=== PATIENT | male | born 1960 | race Caucasian/White ===

== ENCOUNTER 2021-05-25 03:12 | Inpatient (IN) | payer OTHER ==
[2021-05-25] MEDS ORDERED: Boostrix 0.5 ML (Tdap) VIAL ONE (03:17)
[2021-05-25] MEDS ORDERED: CEFAZOLIN 1 GM VIAL ONE (03:19)
[2021-05-25 03:48] LABS: #Basophils 0.1 thou/uL (0.0-0.2); #Eosinphils 0.3 thou/uL (0.0-0.7); #Lymphocytes 2.3 thou/uL (1.20-3.40); #Monocytes 0.7 thou/uL (0.11-0.59); #Neutrophils 6.9 thou/uL (1.40-6.50); %Basophils 0.6 % (0.0-1.0); %Eosinophils 2.9 % (0.0-10.0); %Lymphocytes 22.7 % (21.0-51.0); %Monocytes 6.9 % (0.0-10.0); %Neutrophils 66.9 % (42.0-75.0); Hemoglobin 15.8 g/dL (14.0-18.0); Mean Corpuscular HGB CONC 33.3 g/dL (32.0-36.0); Mean Corpuscular Volume 95.9 fL (78.0-98.0); Mean Platelet Volume 7.8 fL (7.4-10.4); Platelet Count 240 thou/uL (130-400); Red Blood Cell (RBC) Count 4.96 mill/uL (4.70-6.10); White Blood Cell (WBC) Count 10.3 thou/uL (4.8-10.8)
[2021-05-25] MEDS ORDERED: Bacitracin Zinc Ointment 30 gm TUBE ONE (03:49)
[2021-05-25] MEDS ORDERED: Bupivacaine PF 0.5% 30 ML VIAL ONE (03:49)
[2021-05-25] MEDS ORDERED: Neomycin-Polymyxin 1 ML AMP ONE ×3 (03:49→06:51)
[2021-05-25] MEDS ORDERED: Ondansetron PF 4 MG/2 ML Vial ONE (04:16)
[2021-05-25] MEDS ORDERED: Fentanyl 100 MCG/2 ML VIAL ONE ×3 (04:16→05:05)
[2021-05-25 04:22] LABS: ALT (SGPT) 26 U/L (8-55); AST (SGOT) 32 U/L (5-34); Albumin 4.1 g/dL (3.4-4.8); Alkaline Phosphatase 91 U/L (40-110); Anion Gap 14 mmol/L (10-20); BUN (Urea Nitrogen) 16 mg/dL (8.4-25.7); Bilirubin, Total 0.4 mg/dL (0.2-1.2); Calc. Creatinine Clearance 0 mL/min (70-130); Calcium 9.3 mg/dL (7.8-10.44); Carbon Dioxide 24 mmol/L (23-31); Chloride 101 mmol/L (98-107); Globulin 3.2 g/dL (2.4-3.5); Glucose 104 mg/dL (80-115); Potassium 3.1 mmol/L (3.5-5.1); Protein, Total 7.3 g/dL (5.8-8.1); Sodium 136 mmol/L (136-145)
[2021-05-25] MEDS ORDERED: Atropine Sulfate 1 mg/10 ml Syringe ONE (04:22)
[2021-05-25 04:53] LABS: SARS-CoV-2 NAA Rapid Test Not Detected (NotDetected)
[2021-05-25] MEDS ORDERED: HYDROcodone/Acetaminophen 5/325 mg Tablet PO PRN (04:59)
[2021-05-25] MEDS ORDERED: traMADol HCl 50 MG TAB PO PRN (04:59)
[2021-05-25] MEDS ORDERED: Morphine 4 MG/ML VIAL SLOW IVP PRN (04:59)
[2021-05-25] MEDS ORDERED: Fentanyl 100 MCG/2 ML VIAL SLOW IVP PRN (04:59)
[2021-05-25] MEDS ORDERED: Ondansetron PF 4 MG/2 ML Vial SLOW IVP PRN (04:59)
[2021-05-25] MEDS ORDERED: Promethazine HCl 25 MG/ML VIAL IM PRN ×2 (04:59→11:44)
[2021-05-25] MEDS ORDERED: Milk Of Magnesia 30 ML UDCUP PO PRN (04:59)
[2021-05-25] MEDS ORDERED: Communication Order-Pharmacy FS PRN (05:00)
[2021-05-25] MEDS ORDERED: TETANUS AND DIPHTHERIA TOX/PF 0.5 ML DISP.SYRIN IM SCH (05:00)
[2021-05-25] MEDS ORDERED: Midazolam HCl 2 mg/2 ml Vial ONE (05:05)
[2021-05-25] MEDS ORDERED: Ketorolac Tromethamine 30 MG/ML VIAL IVP PRN (05:06)
[2021-05-25] MEDS ORDERED: Meperidine HCl/PF 25 MG/ML VIAL IM PRN (05:06)
[2021-05-25] MEDS ORDERED: HYDROmorphone 0.5 MG/0.5 ML SYRINGE ONE (05:09)
[2021-05-25] MEDS ORDERED: Vancomycin 1 GM in Premix Bag 1 BAG IVPB SCH ×2 (06:00→09:00)
[2021-05-25] MEDS ORDERED: Hetastarch 6% 500 ML 500 ML ONE ×2 (07:38→12:00)
[2021-05-25] MEDS ORDERED: Heparin 5,000 UNITS/ML VIAL ONE ×2 (07:38→08:16)
[2021-05-25] MEDS ORDERED: Lidocaine 2% PF 5 ML VIAL ONE (07:38)
[2021-05-25] MEDS ORDERED: Fentanyl 250 MCG/5 ML VIAL ONE (07:47)
[2021-05-25] MEDS ORDERED: PHENYLEPHRINE-NS 100 MCG/ML 10 ML SYRINGE ONE (08:15)
[2021-05-25] MEDS ORDERED: Lidocaine 1% PF 5 ML VIAL ONE (08:15)
[2021-05-25] MEDS ORDERED: PROPOFOL 200 MG/20 ML VIAL ONE (08:15)
[2021-05-25] MEDS ORDERED: ePHEDrine 50 MG/ML VIAL ONE (08:15)
[2021-05-25] MEDS ORDERED: Glycopyrrolate 0.2 MG/ML 5 ML SYRINGE ONE (08:15)
[2021-05-25] MEDS ORDERED: Succinylcholine 200 MG/10 ml SYRINGE FS ONE (08:15)
[2021-05-25] MEDS ORDERED: Rocuronium Bromide 10 MG/ML (10ML VIAL) ONE (08:15)
[2021-05-25] MEDS ORDERED: Dexamethasone 20 MG/5 ML VIAL ONE (08:15)
[2021-05-25] MEDS ORDERED: Vecuronium 10 MG VIAL ONE (08:15)
[2021-05-25] MEDS ORDERED: Heparin 10,000 UNITS/ 10 ML VIAL ONE (08:16)
[2021-05-25] MEDS ORDERED: Heparin 25,000 units/D5W 500 ML ONE (08:45)
[2021-05-25] MEDS ORDERED: Phenylephrine 10 MG/ML VIAL ONE (08:58)
[2021-05-25] MEDS: Pen G 2.5 MILL.UNITS/50 ML BAG IVPB SCH ×3 (10:00→20:30)
[2021-05-25] MEDS ORDERED: Ondansetron HCl/PF 4 MG/2 ML Vial IVP PRN (11:44)
[2021-05-25] MEDS ORDERED: Promethazine HCl 25 MG/ML VIAL IVPB PRN (11:44)
[2021-05-25] MEDS ORDERED: HYDROmorphone 2 MG/ML VIAL SLOW IVP PRN (11:44)
[2021-05-25] MEDS: Aspirin 81 mg Enteric Coated Tablet PO SCH ×2 (13:16→20:08)
[2021-05-25] MEDS: Sodium Chloride 0.9% 1,000 ML IV SCH ×3 (13:16→20:08)
[2021-05-25 13:36] VITALS: BMI 28.7
[2021-05-25] MEDS ORDERED: VANCOMYCIN 1.75 GM/350 ML BAG 1.75 GM in Premix Bag 1 BAG IVPB SCH (16:00)
[2021-05-25] MEDS ORDERED: SODIUM CHLORIDE 0.9% IVPB SCH (16:30)
[2021-05-25] MEDS ORDERED: GENTAMICIN IVPB SCH (16:30)
[2021-05-25] MEDS: Acetaminophen 325 MG TAB PO PRN (22:02)
[2021-05-25] MEDS: Penicillin G Potassium 2.5 MILL.UNITS in Sodium Chloride 0.9% 50 ML IVPB SCH (22:28)
[2021-05-25] MEDS ORDERED: Heparin 25,000 units/D5W 25,000 UNIT in Premix Bag 1 BAG IV SCH (22:45)
[2021-05-25] MEDS ORDERED: HETASTARCH 6% IVPB SCH (23:00)
[2021-05-25] MEDS ORDERED: diphenhydrAMINE 50 MG/ML VIAL IVP SCH (23:15)
[2021-05-26] MEDS: Penicillin G Potassium 2.5 MILL.UNITS in Sodium Chloride 0.9% 50 ML IVPB SCH ×3 (02:07→08:28)
[2021-05-26] MEDS: Gentamicin 80 MG/2 ML VIAL IM SCH (03:20)
[2021-05-26] MEDS: Hetastarch 6% 500 ML 500 ML IVPB SCH (04:58)
[2021-05-26 06:28] LABS: #Lymphocytes 1.6 thou/uL (1.20-3.40); #Monocytes 0.7 thou/uL (0.11-0.59); #Neutrophils 9.2 thou/uL (1.40-6.50); %Basophils 0.3 % (0.0-1.0); %Eosinophils 0.1 % (0.0-10.0); %Lymphocytes 13.8 % (21.0-51.0); %Monocytes 6.4 % (0.0-10.0); %Neutrophils 79.4 % (42.0-75.0); Hemoglobin 13.2 g/dL (14.0-18.0); Mean Corpuscular Hemoglobin 32.4 pg (27.0-31.0); Mean Corpuscular Volume 98.3 fL (78.0-98.0); Platelet Count 216 thou/uL (130-400); RBC Distribution Width 12.3 % (11.5-14.5); Red Blood Cell (RBC) Count 4.08 mill/uL (4.70-6.10); White Blood Cell (WBC) Count 11.5 thou/uL (4.8-10.8)
[2021-05-26] MEDS: Aspirin 81 mg Enteric Coated Tablet PO SCH ×2 (07:47→20:15)
[2021-05-26] MEDS: Vancomycin 1 GM in Premix Bag 1 BAG IVPB SCH ×2 (07:48→20:16)
[2021-05-26] MEDS: Acetaminophen 325 MG TAB PO PRN ×2 (09:55→20:14)
[2021-05-26] MEDS: Sodium Chloride 0.9% 1,000 ML IV SCH ×2 (11:46→22:58)
[2021-05-26] MEDS: GENTAMICIN IVPB SCH (17:41)
[2021-05-26] MEDS: SODIUM CHLORIDE 0.9% IVPB SCH (17:41)
[2021-05-26] MEDS ORDERED: Heparin 25,000 units/D5W 25,000 UNIT in Premix Bag 1 BAG IV SCH (19:15)
[2021-05-27] MEDS: Hetastarch 6% 500 ML 500 ML IVPB SCH (01:44)
[2021-05-27] MEDS ORDERED: Lidocaine 1% MPF 2 ML VIAL ONE (08:30)
[2021-05-27] MEDS: Vancomycin 1 GM in Premix Bag 1 BAG IVPB SCH ×2 (09:30→20:50)
[2021-05-27] MEDS ORDERED: Bupivacaine PF 0.5% 30 ML VIAL ONE (09:54)
[2021-05-27] MEDS ORDERED: Bacitracin Zinc Ointment 30 gm TUBE ONE (09:54)
[2021-05-27] MEDS ORDERED: Fentanyl 100 MCG/2 ML VIAL ONE ×3 (10:18→13:10)
[2021-05-27] MEDS ORDERED: Ondansetron HCl/PF 4 MG/2 ML Vial IVP PRN (12:41)
[2021-05-27] MEDS ORDERED: HYDROmorphone 2 MG/ML VIAL SLOW IVP PRN (12:41)
[2021-05-27] MEDS ORDERED: Promethazine HCl 25 MG/ML VIAL IM PRN (12:41)
[2021-05-27] MEDS ORDERED: Promethazine HCl 25 MG/ML VIAL IVPB PRN (12:41)
[2021-05-27] MEDS ORDERED: Clindamycin/D5W 900 mg/50 ml Premix Bag ONE (13:05)
[2021-05-27] MEDS ORDERED: Aspirin 325 MG TAB ONE (13:06)
[2021-05-27] MEDS ORDERED: Clindamycin/D5W 900 MG in Premix Bag 1 BAG IVPB SCH (13:15)
[2021-05-27] MEDS ORDERED: Aspirin 325 mg Enteric Coated Tablet PO SCH (13:15)
[2021-05-27] MEDS: Sodium Chloride 0.9% 1,000 ML IV SCH ×2 (14:26→17:59)
[2021-05-27] MEDS: Aspirin 81 mg Enteric Coated Tablet PO SCH ×2 (14:26→20:40)
[2021-05-27] MEDS ORDERED: HYDROcodone/Acetaminophen 5/325 mg Tablet PO PRN (16:41)
[2021-05-27] MEDS ORDERED: Meperidine HCl/PF 25 MG/ML VIAL IM PRN (16:44)
[2021-05-27] MEDS ORDERED: Ketorolac Tromethamine 30 MG/ML VIAL IVP PRN ×2 (16:44→16:58)
[2021-05-27] MEDS ORDERED: Communication Order-Pharmacy FS SCH (16:45)
[2021-05-27] MEDS ORDERED: TETANUS AND DIPHTHERIA TOX/PF 0.5 ML DISP.SYRIN IM SCH (16:45)
[2021-05-27] MEDS: SODIUM CHLORIDE 0.9% IVPB SCH (17:59)
[2021-05-27] MEDS: GENTAMICIN IVPB SCH (17:59)
[2021-05-27] MEDS: Pregabalin 75 MG CAP PO SCH (20:40)
[2021-05-27] MEDS ORDERED: Aspirin 81 mg Enteric Coated Tablet PO SCH (21:00)
[2021-05-28 03:59] VITALS: BP 117/77; TEMP 97.8
[2021-05-28] MEDS: Sodium Chloride 0.9% 1,000 ML IV SCH (04:43)
[2021-05-28] MEDS ORDERED: FLU VACC QS2021-22(6MOS UP)/PF 60 MCG/0.5 ML SYRINGE IM ONE (09:00)
[2021-05-28] MEDS ORDERED: Chlorthalidone 25 MG TAB PO SCH (09:00)
[2021-05-28] MEDS: Aspirin 81 mg Enteric Coated Tablet PO SCH (09:21)
[2021-05-28] MEDS: Pregabalin 75 MG CAP PO SCH (09:22)
[2021-05-28] MEDS: Vancomycin 1 GM in Premix Bag 1 BAG IVPB SCH (09:23)
== END 2021-05-28 12:26 | disposition home or self-care (01) | DRG 906 ==
LOC: ERS 03:12 → SDC 06:30 → SURG A 06:31
PROVIDERS: ADMIT Orthopaedic Surgery Hand Surgery; ATTEND Orthopaedic Surgery Hand Surgery
PROC: 0PSV04Z Reposition Left Finger Phalanx with Internal Fixation Device, Open Approach (ICD-10-PCS; principal; 2021-05-25)
PROC: 01Q60ZZ Repair Radial Nerve, Open Approach (ICD-10-PCS; 2021-05-25)
PROC: 01Q40ZZ Repair Ulnar Nerve, Open Approach (ICD-10-PCS; 2021-05-25)
PROC: 0HRGX73 Replacement of Left Hand Skin with Autologous Tissue Substitute, Full Thickness, External Approach (ICD-10-PCS; 2021-05-27)
PROC: 0HQQXZZ Repair Finger Nail, External Approach (ICD-10-PCS; 2021-05-27)
PROC: 0JBK0ZZ Excision of Left Hand Subcutaneous Tissue and Fascia, Open Approach (ICD-10-PCS; 2021-05-27)
PROC: 0HBEXZZ Excision of Left Lower Arm Skin, External Approach (ICD-10-PCS; 2021-05-27)
PROC: 0HDQXZZ Extraction of Finger Nail, External Approach (ICD-10-PCS; 2021-05-27)
DX: S67.193A Crushing injury of left middle finger, initial encounter (principal); Z23 Encounter for immunization; Z20.822 Contact with and (suspected) exposure to COVID-19; S62.633B Displaced fracture of distal phalanx of left middle finger, initial encounter for open fracture; S55.012A Laceration of ulnar artery at forearm level, left arm, initial encounter; S55.112A Laceration of radial artery at forearm level, left arm, initial encounter; S62.613B Displaced fracture of proximal phalanx of left middle finger, initial encounter for open fracture; F41.9 Anxiety disorder, unspecified; S54.22XA Injury of radial nerve at forearm level, left arm, initial encounter; Z79.899 Other long term (current) drug therapy; Z87.442 Personal history of urinary calculi; W31.1XXA Contact with metalworking machines, initial encounter; Y92.69 Other specified industrial and construction area as the place of occurrence of the external cause; Y99.0 Civilian activity done for income or pay
CPT/HCPCS: 36415; 71045; 76000; 80053; 80170; 85025; 90715; 93005; C1713; G0390; J0461; J0690; J1100; J1170; J1200; J1580; J1644; J2001; J2250; J2270; J2370; J2405; J2540; J2704; J3010; J3370; J3490; J7050; S0020; U0002

== ENCOUNTER 2021-08-01 14:50 | Outpatient (CLI) | payer OTHER ==
[2021-08-01 16:02] LABS: #Eosinphils 0.1 10x3/uL (0.0-0.5); #Monocytes 0.6 10x3/uL (0.0-1.1); %Basophils 0.7 % (0.0-2.0); %Eosinophils 1.6 % (0.0-6.0); %Lymphocytes 31.3 % (18.0-47.0); %Monocytes 10.4 % (0.0-10.0); %Neutrophils 55.5 % (40.0-75.0); Hemoglobin 14.5 g/dL (13.5-17.5); Mean Corpuscular HGB CONC 34.6 g/dL (32.0-36.0); Mean Corpuscular Hemoglobin 31.7 pg (27.0-33.0); Mean Corpuscular Volume 91.7 fl (81.2-95.1); Mean Platelet Volume 10.2 fl (7.4-10.4); Platelet Count 266 10x3/uL (150-450); RBC Distribution Width 13.1 % (11.5-14.5); Red Blood Cell (RBC) Count 4.57 10x6/uL (4.32-5.72); White Blood Cell (WBC) Count 5.5 10x3/uL (3.5-10.5)
[2021-08-02 00:03] LABS: SARS-CoV-2 PCR by NAA Not Detected (NotDetected)
== END 2021-08-01 14:51 | disposition home or self-care (01) ==
LOC: LABBT 14:50
PROVIDERS: ATTEND Orthopaedic Surgery Hand Surgery
DX: Z01.812 Encounter for preprocedural laboratory examination (principal); S62.633B Displaced fracture of distal phalanx of left middle finger, initial encounter for open fracture; S62.623B Displaced fracture of middle phalanx of left middle finger, initial encounter for open fracture; S62.613B Displaced fracture of proximal phalanx of left middle finger, initial encounter for open fracture; T84.84XA Pain due to internal orthopedic prosthetic devices, implants and grafts, initial encounter; Z20.822 Contact with and (suspected) exposure to COVID-19
CPT/HCPCS: 85025; U0003; U0005

== ENCOUNTER 2021-08-02 12:05 | Day surgery (SDC) | payer OTHER ==
[2021-08-01 11:04] VITALS: BMI 28.7
[2021-08-02] MEDS ORDERED: Sodium Chloride 0.9% 0 ML ONE (12:54)
[2021-08-02] MEDS ORDERED: CEFAZOLIN 2 GM VIAL ONE (12:54)
[2021-08-02] MEDS ORDERED: fentaNYL Citrate/PF 100 MCG/2 ML SYRINGE ONE (12:59)
[2021-08-02] MEDS ORDERED: Midazolam HCl 2 mg/2 ml Vial ONE (12:59)
[2021-08-02] MEDS ORDERED: HYDROmorphone 2 MG/ML VIAL ONE (13:00)
[2021-08-02] MEDS ORDERED: Clindamycin/D5W 600 mg/50 ml Premix Bag ONE (13:00)
[2021-08-02] MEDS ORDERED: Ondansetron PF 4 MG/2 ML Vial ONE (13:22)
[2021-08-02] MEDS ORDERED: Lidocaine 1% PF 5 ML VIAL ONE (13:22)
[2021-08-02] MEDS ORDERED: Dexamethasone 20 MG/5 ML VIAL ONE (13:22)
[2021-08-02] MEDS ORDERED: PROPOFOL 200 MG/20 ML VIAL ONE (13:22)
[2021-08-02] MEDS ORDERED: Glycopyrrolate 0.2 MG/ML 5 ML SYRINGE ONE (13:22)
[2021-08-02] MEDS ORDERED: ePHEDrine 50 MG/ML VIAL ONE (13:22)
[2021-08-02 13:29] LABS: Anion Gap 12 mmol/L (10-20); BUN (Urea Nitrogen) 18 mg/dL (8.4-25.7); Calc. Creatinine Clearance 87 mL/min (70-130); Carbon Dioxide 26 mmol/L (23-31); Chloride 104 mmol/L (98-107); Glucose 89 mg/dL (80-115); Potassium 3.7 mmol/L (3.5-5.1); Sodium 138 mmol/L (136-145)
[2021-08-02] MEDS ORDERED: Neomycin-Polymyxin 1 ML AMP ONE (13:43)
[2021-08-02] MEDS ORDERED: Bupivacaine PF 0.5% 30 ML VIAL ONE (13:43)
[2021-08-02] MEDS ORDERED: Bacitracin Zinc Ointment 30 gm TUBE ONE (13:43)
== END 2021-08-02 16:04 | disposition home or self-care (01) ==
LOC: SDC 12:05
PROVIDERS: ATTEND Orthopaedic Surgery Hand Surgery
PROC: 0RPX0JZ Removal of Synthetic Substitute from Left Finger Phalangeal Joint, Open Approach (ICD-10-PCS; principal; 2021-08-02)
DX: T84.84XA Pain due to internal orthopedic prosthetic devices, implants and grafts, initial encounter (principal); Z79.899 Other long term (current) drug therapy; Z88.0 Allergy status to penicillin
CPT/HCPCS: 76000; 80048; J1100; J1170; J2250; J2405; J2704; J3490; S0020

== ENCOUNTER 2021-08-11 03:30 | Inpatient (IN) | payer OTHER ==
[2021-08-11] MEDS ORDERED: Heparin 1,000 UNITS/ML VIAL ONE (13:13)
[2021-08-11 16:35] LABS: SARS-CoV-2 NAA Rapid Test Not Detected (NotDetected)
[2021-08-11] MEDS ORDERED: PROPOFOL 200 MG/20 ML VIAL ONE (16:42)
[2021-08-11] MEDS ORDERED: Lidocaine 1% PF 5 ML VIAL ONE (16:42)
[2021-08-11] MEDS ORDERED: Glycopyrrolate 0.2 MG/ML 5 ML SYRINGE ONE (16:42)
[2021-08-11] MEDS ORDERED: Ondansetron PF 4 MG/2 ML Vial ONE ×2 (16:42→20:43)
[2021-08-11 17:45] LABS: #Basophils 0.1 thou/uL (0.0-0.2); #Lymphocytes 1.5 thou/uL (1.20-3.40); #Monocytes 0.6 thou/uL (0.11-0.59); #Neutrophils 4.8 thou/uL (1.40-6.50); %Basophils 0.8 % (0.0-1.0); %Eosinophils 0.4 % (0.0-10.0); %Lymphocytes 22.1 % (21.0-51.0); %Neutrophils 68.7 % (42.0-75.0); Hemoglobin 14.3 g/dL (14.0-18.0); Mean Corpuscular HGB CONC 33.1 g/dL (32.0-36.0); Mean Corpuscular Hemoglobin 32.5 pg (27.0-31.0); Mean Corpuscular Volume 98.2 fL (78.0-98.0); Mean Platelet Volume 7.4 fL (7.4-10.4); Platelet Count 253 thou/uL (130-400); RBC Distribution Width 11.8 % (11.5-14.5); Red Blood Cell (RBC) Count 4.41 mill/uL (4.70-6.10); White Blood Cell (WBC) Count 6.9 thou/uL (4.8-10.8)
[2021-08-11] MEDS ORDERED: Midazolam HCl 2 mg/2 ml Vial ONE (18:02)
[2021-08-11] MEDS ORDERED: fentaNYL Citrate/PF 100 MCG/2 ML SYRINGE ONE (18:03)
[2021-08-11] MEDS ORDERED: Promethazine HCl 25 MG/ML VIAL IM PRN ×2 (18:17→20:02)
[2021-08-11] MEDS ORDERED: Neomycin-Polymyxin 1 ML AMP ONE (18:17)
[2021-08-11] MEDS ORDERED: Fentanyl 100 MCG/2 ML VIAL SLOW IVP PRN (18:17)
[2021-08-11] MEDS ORDERED: Milk Of Magnesia 30 ML UDCUP PO PRN (18:17)
[2021-08-11] MEDS ORDERED: Ondansetron PF 4 MG/2 ML Vial IVP PRN (18:17)
[2021-08-11] MEDS ORDERED: Bacitracin Zinc Ointment 30 gm TUBE ONE (18:17)
[2021-08-11] MEDS ORDERED: Bupivacaine PF 0.5% 30 ML VIAL ONE (18:17)
[2021-08-11] MEDS ORDERED: Meperidine HCl/PF 25 MG/ML VIAL IM PRN (18:22)
[2021-08-11] MEDS ORDERED: Vancomycin 1 GM/200 ML BAG ONE (18:29)
[2021-08-11] MEDS ORDERED: Communication Order-Pharmacy FS SCH (18:30)
[2021-08-11] MEDS ORDERED: Tobramycin Sulfate 1.2 GM VIAL ONE (18:51)
[2021-08-11] MEDS ORDERED: TETANUS AND DIPHTHERIA TOX/PF 0.5 ML DISP.SYRIN IM SCH (19:00)
[2021-08-11] MEDS ORDERED: Meperidine HCl/PF 25 MG/ML VIAL SLOW IVP PRN ×2 (20:02)
[2021-08-11] MEDS ORDERED: Ondansetron HCl/PF 4 MG/2 ML Vial IVP PRN (20:02)
[2021-08-11] MEDS ORDERED: Promethazine HCl 25 MG/ML VIAL IVPB PRN (20:02)
[2021-08-11] MEDS ORDERED: Fentanyl 100 MCG/2 ML VIAL ONE ×2 (20:18→21:04)
[2021-08-11] MEDS ORDERED: Meperidine HCl/PF 25 MG/ML VIAL ONE (20:21)
[2021-08-11 21:57] VITALS: BMI 28.4
[2021-08-11] MEDS: Sodium Chloride 0.9% 1,000 ML IV SCH (22:11)
[2021-08-11] MEDS: Aspirin 81 mg Enteric Coated Tablet PO SCH (22:28)
[2021-08-11] MEDS: Morphine 4 MG/ML VIAL SLOW IVP PRN (22:31)
[2021-08-11] MEDS: Clindamycin/D5W 900 MG in Premix Bag 1 BAG IVPB SCH (23:55)
[2021-08-12] MEDS: Ketorolac Tromethamine 30 MG/ML VIAL IVP SCH ×5 (00:02→17:32)
[2021-08-12] MEDS: Gentamicin Sulfate 80 MG in Premix Bag 1 BAG IVPB SCH ×3 (00:42→17:33)
[2021-08-12] MEDS: Sodium Chloride 0.9% 1,000 ML IV SCH ×2 (03:25→13:13)
[2021-08-12] MEDS ORDERED: Vancomycin 1.5 GRAM/300 ML BAG 1.5 GM in Premix Bag 1 BAG IVPB SCH (06:00)
[2021-08-12] MEDS: Aspirin 81 mg Enteric Coated Tablet PO SCH ×2 (08:09→21:27)
[2021-08-12] MEDS: Clindamycin/D5W 900 MG in Premix Bag 1 BAG IVPB SCH ×2 (09:00→15:58)
[2021-08-12] MEDS: HYDROcodone/Acetaminophen 5/325 mg Tablet PO PRN (21:27)
[2021-08-13] MEDS: Ketorolac Tromethamine 30 MG/ML VIAL IVP SCH (00:07)
[2021-08-13] MEDS: Sodium Chloride 0.9% 1,000 ML IV SCH ×3 (01:25→18:59)
[2021-08-13] MEDS: Morphine 4 MG/ML VIAL SLOW IVP PRN (08:52)
[2021-08-13] MEDS: Aspirin 81 mg Enteric Coated Tablet PO SCH ×2 (08:52→21:00)
[2021-08-13] MEDS ORDERED: ceFAZolin 2 GM/Dextrose 50 ML 2 GM in Premix Bag 1 BAG IVPB SCH (20:00)
[2021-08-13] MEDS: HYDROcodone/Acetaminophen 5/325 mg Tablet PO PRN (21:00)
[2021-08-13] MEDS: CEFAZOLIN 2 GM in Sodium Chloride 0.9% 100 ML IVPB SCH (21:17)
[2021-08-13] MEDS: Vancomycin HCl 1.25 GM in Sodium Chloride 0.9% 250 ML 250 ML IVPB SCH (22:11)
[2021-08-14] MEDS: Sodium Chloride 0.9% 1,000 ML IV SCH ×3 (04:51→23:04)
[2021-08-14] MEDS: CEFAZOLIN 2 GM in Sodium Chloride 0.9% 100 ML IVPB SCH (05:25)
[2021-08-14] MEDS: Vancomycin HCl 1.25 GM in Sodium Chloride 0.9% 250 ML 250 ML IVPB SCH ×2 (10:14→21:18)
[2021-08-14] MEDS: Aspirin 81 mg Enteric Coated Tablet PO SCH ×2 (10:15→21:18)
[2021-08-14] MEDS: Morphine 4 MG/ML VIAL SLOW IVP PRN ×2 (11:52→13:53)
[2021-08-15 07:56] LABS: #Basophils 0.1 thou/uL (0.0-0.2); #Eosinphils 0.2 thou/uL (0.0-0.7); #Lymphocytes 1.7 thou/uL (1.20-3.40); #Monocytes 0.4 thou/uL (0.11-0.59); #Neutrophils 4.4 thou/uL (1.40-6.50); %Basophils 0.8 % (0.0-1.0); %Eosinophils 2.8 % (0.0-10.0); %Lymphocytes 24.4 % (21.0-51.0); %Monocytes 6.4 % (0.0-10.0); %Neutrophils 65.6 % (42.0-75.0); Hemoglobin 15.1 g/dL (14.0-18.0); Mean Corpuscular HGB CONC 33.9 g/dL (32.0-36.0); Mean Corpuscular Hemoglobin 32.8 pg (27.0-31.0); Mean Corpuscular Volume 96.7 fL (78.0-98.0); Mean Platelet Volume 7.1 fL (7.4-10.4); Platelet Count 279 thou/uL (130-400); Red Blood Cell (RBC) Count 4.61 mill/uL (4.70-6.10); White Blood Cell (WBC) Count 6.8 thou/uL (4.8-10.8)
[2021-08-15 08:22] LABS: Vancomycin, Trough 12.9 ug/mL
[2021-08-15] MEDS: Aspirin 81 mg Enteric Coated Tablet PO SCH ×2 (09:02→21:26)
[2021-08-15] MEDS: Vancomycin HCl 1.25 GM in Sodium Chloride 0.9% 250 ML 250 ML IVPB SCH ×2 (09:02→21:26)
[2021-08-15] MEDS: Morphine 4 MG/ML VIAL SLOW IVP PRN (11:47)
[2021-08-15] MEDS: Sodium Chloride 0.9% 1,000 ML IV SCH (22:32)
[2021-08-16] MEDS: Sodium Chloride 0.9% 1,000 ML IV SCH ×2 (00:38→19:16)
[2021-08-16] MEDS: Morphine 4 MG/ML VIAL SLOW IVP PRN (08:26)
[2021-08-16] MEDS: Aspirin 81 mg Enteric Coated Tablet PO SCH ×2 (08:30→20:55)
[2021-08-16] MEDS: VANCOMYCIN 1.25 GM/250 ML BAG 1.25 GM in Premix Bag 1 BAG IVPB SCH ×2 (08:30→20:55)
[2021-08-16 08:34] LABS: Vancomycin, Trough 15.6 ug/mL
[2021-08-16] MEDS: HYDROcodone/Acetaminophen 5/325 mg Tablet PO PRN (23:44)
[2021-08-17] MEDS: Sodium Chloride 0.9% 1,000 ML IV SCH ×3 (02:49→23:22)
[2021-08-17] MEDS: Aspirin 81 mg Enteric Coated Tablet PO SCH ×2 (09:23→21:07)
[2021-08-17] MEDS: VANCOMYCIN 1.25 GM/250 ML BAG 1.25 GM in Premix Bag 1 BAG IVPB SCH ×2 (10:26→20:25)
[2021-08-17] MEDS: Morphine 4 MG/ML VIAL SLOW IVP PRN (20:20)
[2021-08-18 06:57] LABS: SARS-CoV-2 NAA Rapid Test Not Detected (NotDetected)
[2021-08-18] MEDS: Sodium Chloride 0.9% 1,000 ML IV SCH ×2 (07:59→21:40)
[2021-08-18] MEDS: Aspirin 81 mg Enteric Coated Tablet PO SCH ×2 (07:59→21:40)
[2021-08-18] MEDS: VANCOMYCIN 1.25 GM/250 ML BAG 1.25 GM in Premix Bag 1 BAG IVPB SCH ×2 (08:32→21:40)
[2021-08-18] MEDS ORDERED: Bupivacaine 0.25% HCL 30 ML VIAL ONE (18:41)
[2021-08-18] MEDS ORDERED: Neomycin-Polymyxin 1 ML AMP ONE (18:41)
[2021-08-18] MEDS ORDERED: Bacitracin Zinc Ointment 30 gm TUBE ONE (18:41)
[2021-08-18] MEDS ORDERED: Lidocaine 1% PF 5 ML VIAL ONE (19:26)
[2021-08-18] MEDS ORDERED: Ondansetron PF 4 MG/2 ML Vial ONE (19:26)
[2021-08-18] MEDS ORDERED: ePHEDrine 50 MG/ML VIAL ONE (19:26)
[2021-08-18] MEDS ORDERED: Dexamethasone 20 MG/5 ML VIAL ONE (19:26)
[2021-08-18] MEDS ORDERED: PROPOFOL 200 MG/20 ML VIAL ONE (19:26)
[2021-08-18] MEDS ORDERED: Glycopyrrolate 0.2 MG/ML 5 ML SYRINGE ONE (19:26)
[2021-08-18] MEDS ORDERED: fentaNYL Citrate/PF 100 MCG/2 ML SYRINGE ONE ×4 (19:33→21:08)
[2021-08-18] MEDS ORDERED: Mineral Oil Sterile 10 ML VIAL ONE (19:50)
[2021-08-18] MEDS ORDERED: Esmolol 100 MG/10 ML VIAL ONE (20:34)
[2021-08-18] MEDS ORDERED: Promethazine HCl 25 MG/ML VIAL IM PRN (20:41)
[2021-08-18] MEDS ORDERED: Promethazine HCl 25 MG/ML VIAL IVPB PRN (20:41)
[2021-08-18] MEDS ORDERED: Ondansetron HCl/PF 4 MG/2 ML Vial IVP PRN (20:41)
[2021-08-19] MEDS: Sodium Chloride 0.9% 1,000 ML IV SCH ×2 (04:30→07:48)
[2021-08-19 08:03] VITALS: BP 129/82; TEMP 97.7
[2021-08-19] MEDS: VANCOMYCIN 1.25 GM/250 ML BAG 1.25 GM in Premix Bag 1 BAG IVPB SCH (10:43)
[2021-08-19] MEDS: Aspirin 81 mg Enteric Coated Tablet PO SCH (10:44)
[2021-08-19 14:10] LABS: Anion Gap 13 mmol/L (10-20); BUN (Urea Nitrogen) 14 mg/dL (8.4-25.7); Calc. Creatinine Clearance 83 mL/min (70-130); Calcium 9.1 mg/dL (7.8-10.44); Carbon Dioxide 26 mmol/L (23-31); Chloride 101 mmol/L (98-107); Glucose 194 mg/dL (80-115); Potassium 3.7 mmol/L (3.5-5.1); Sodium 136 mmol/L (136-145)
== END 2021-08-19 17:34 | disposition home or self-care (01) | DRG 478 ==
LOC: SDC 03:30 → T4-B 18:17
PROVIDERS: ADMIT Orthopaedic Surgery Hand Surgery; ATTEND Orthopaedic Surgery Hand Surgery
PROC: 0PBL0ZX Excision of Left Ulna, Open Approach, Diagnostic (ICD-10-PCS; principal; 2021-08-11)
PROC: 0RPX04Z Removal of Internal Fixation Device from Left Finger Phalangeal Joint, Open Approach (ICD-10-PCS; 2021-08-11)
PROC: 0JBK0ZZ Excision of Left Hand Subcutaneous Tissue and Fascia, Open Approach (ICD-10-PCS; 2021-08-11)
PROC: 02HV33Z Insertion of Infusion Device into Superior Vena Cava, Percutaneous Approach (ICD-10-PCS; 2021-08-15)
PROC: B5181ZA Fluoroscopy of Superior Vena Cava using Low Osmolar Contrast, Guidance (ICD-10-PCS; 2021-08-15)
PROC: B548ZZA Ultrasonography of Superior Vena Cava, Guidance (ICD-10-PCS; 2021-08-15)
PROC: 0HRGXK3 Replacement of Left Hand Skin with Nonautologous Tissue Substitute, Full Thickness, External Approach (ICD-10-PCS; 2021-08-18)
PROC: 0LB80ZZ Excision of Left Hand Tendon, Open Approach (ICD-10-PCS; 2021-08-18)
DX: T84.69XA Infection and inflammatory reaction due to internal fixation device of other site, initial encounter (principal); M86.8X4 Other osteomyelitis, hand; L02.512 Cutaneous abscess of left hand; Z20.822 Contact with and (suspected) exposure to COVID-19; F41.9 Anxiety disorder, unspecified; B95.62 Methicillin resistant Staphylococcus aureus infection as the cause of diseases classified elsewhere; Y83.1 Surgical operation with implant of artificial internal device as the cause of abnormal reaction of the patient, or of later complication, without mention of misadventure at the time of the procedure; Z79.899 Other long term (current) drug therapy; Z98.890 Other specified postprocedural states; Z87.442 Personal history of urinary calculi
CPT/HCPCS: 36415; 36569; 80048; 80202; 82565; 85025; 85652; 87070; 87077; 87186; 87205; 88307; C1751; C9363-KX-JC; J0690; J1100; J1580; J1644; J1885; J2175; J2250; J2270; J2405; J2704; J3010; J3260; J3370; J3490; J7050; S0020; U0002; U0003; U0005

== ENCOUNTER 2021-09-02 04:33 | Emergency (ER) | payer OTHER, SELFPAY ==
[2021-09-02] MEDS ORDERED: Iopamidol 300 61% 100 ML VIAL FS ONE (12:28)
== END 2021-09-02 05:32 | disposition home or self-care (01) ==
LOC: ERS 04:33
DX: R07.89 Other chest pain (principal); Z45.2 Encounter for adjustment and management of vascular access device; Z79.899 Other long term (current) drug therapy
CPT/HCPCS: 71045; 93005

== ENCOUNTER 2021-09-14 15:30 | Outpatient (CLI) | payer OTHER ==
[2021-09-14 16:38] LABS: Hemoglobin 15.2 g/dL (13.5-17.5); Mean Corpuscular HGB CONC 34.6 g/dL (32.0-36.0); Mean Corpuscular Hemoglobin 31.5 pg (27.0-33.0); Mean Corpuscular Volume 90.9 fl (81.2-95.1); Mean Platelet Volume 10.3 fl (7.4-10.4); Platelet Count 242 10x3/uL (150-450); RBC Distribution Width 13.2 % (11.5-14.5); Red Blood Cell (RBC) Count 4.83 10x6/uL (4.32-5.72); White Blood Cell (WBC) Count 5.1 10x3/uL (3.5-10.5)
== END 2021-09-14 15:31 | disposition home or self-care (01) ==
LOC: LABBT 15:30
PROVIDERS: ATTEND Orthopaedic Surgery Hand Surgery
DX: Z01.812 Encounter for preprocedural laboratory examination (principal); S62.603B Fracture of unspecified phalanx of left middle finger, initial encounter for open fracture; T84.69XA Infection and inflammatory reaction due to internal fixation device of other site, initial encounter; Z20.822 Contact with and (suspected) exposure to COVID-19
CPT/HCPCS: 85027; 87811

== ENCOUNTER 2021-09-16 08:33 | Day surgery (SDC) | payer OTHER ==
[2021-09-14 13:20] VITALS: BMI 28.7
[2021-09-16] MEDS ORDERED: Midazolam HCl 2 mg/2 ml Vial ONE (12:57)
[2021-09-16] MEDS ORDERED: fentaNYL Citrate/PF 100 MCG/2 ML SYRINGE ONE (12:57)
[2021-09-16] MEDS ORDERED: Bupivacaine 0.25% HCL 30 ML VIAL ONE (13:02)
[2021-09-16] MEDS ORDERED: Bacitracin Zinc Ointment 30 gm TUBE ONE (13:02)
[2021-09-16] MEDS ORDERED: Thrombin 5000 UNITS/5 ML VIAL ONE (13:02)
[2021-09-16] MEDS ORDERED: Neomycin-Polymyxin 1 ML AMP ONE (13:02)
[2021-09-16] MEDS ORDERED: Mineral Oil Sterile 10 ML VIAL ONE (13:02)
[2021-09-16] MEDS ORDERED: Lidocaine 1% PF 5 ML VIAL ONE (13:25)
[2021-09-16] MEDS ORDERED: Phenylephrine 10 MG/ML VIAL ONE (13:25)
[2021-09-16] MEDS ORDERED: ePHEDrine 50 MG/ML VIAL ONE (13:25)
[2021-09-16] MEDS ORDERED: Glycopyrrolate 0.2 MG/ML 5 ML SYRINGE ONE (13:25)
[2021-09-16] MEDS ORDERED: PROPOFOL 200 MG/20 ML VIAL ONE (13:25)
[2021-09-16] MEDS ORDERED: Ondansetron PF 4 MG/2 ML Vial ONE (13:25)
[2021-09-16] MEDS ORDERED: Dexamethasone 20 MG/5 ML VIAL ONE (13:25)
[2021-09-16] MEDS ORDERED: Meperidine HCl/PF 25 MG/ML VIAL ONE (16:17)
[2021-09-16] MEDS ORDERED: HYDROcodone/Acetaminophen 5/325 mg Tablet ONE (16:50)
[2021-09-16] MEDS ORDERED: Ketorolac Tromethamine 30 MG/ML VIAL ONE (16:50)
== END 2021-09-16 17:15 | disposition home or self-care (01) ==
LOC: SDC 08:33
PROVIDERS: ATTEND Orthopaedic Surgery Hand Surgery
PROC: 0RBX0ZZ Excision of Left Finger Phalangeal Joint, Open Approach (ICD-10-PCS; principal; 2021-09-16)
PROC: 0RPX0JZ Removal of Synthetic Substitute from Left Finger Phalangeal Joint, Open Approach (ICD-10-PCS; principal; 2021-09-16)
PROC: 0HRGX73 Replacement of Left Hand Skin with Autologous Tissue Substitute, Full Thickness, External Approach (ICD-10-PCS; principal; 2021-09-16)
DX: S61.203A Unspecified open wound of left middle finger without damage to nail, initial encounter (principal); M24.642 Ankylosis, left hand; M24.542 Contracture, left hand; T84.69XA Infection and inflammatory reaction due to internal fixation device of other site, initial encounter; Z79.2 Long term (current) use of antibiotics; Z79.899 Other long term (current) drug therapy; Z88.0 Allergy status to penicillin; Z98.890 Other specified postprocedural states
CPT/HCPCS: 76000; J1100; J1885; J2175; J2250; J2370; J2405; J2704; J3490; S0020

== ENCOUNTER 2021-11-23 07:32 | Outpatient (CLI) | payer OTHER | END 2021-11-23 07:33 | disposition home or self-care (01) | LOC: SCSMRI 07:32 | PROVIDERS: ATTEND Orthopaedic Surgery Hand Surgery | DX: M19.92 Post-traumatic osteoarthritis, unspecified site (principal) ==

== ENCOUNTER 2021-12-08 17:13 | Outpatient (CLI) | payer OTHER ==
[2021-12-08 17:56] LABS: #Eosinphils 0.1 10x3/uL (0.0-0.5); #Monocytes 0.6 10x3/uL (0.0-1.1); #Neutrophils 4.2 10x3/uL (1.5-8.4); %Basophils 0.5 % (0.0-2.0); %Eosinophils 0.8 % (0.0-6.0); %Lymphocytes 26.5 % (18.0-47.0); Hemoglobin 15.2 g/dL (13.5-17.5); Mean Corpuscular HGB CONC 35.7 g/dL (32.0-36.0); Mean Corpuscular Hemoglobin 31.9 pg (27.0-33.0); Mean Corpuscular Volume 89.5 fl (81.2-95.1); Mean Platelet Volume 10.3 fl (7.4-10.4); Platelet Count 257 10x3/uL (150-450); RBC Distribution Width 12.7 % (11.5-14.5); Red Blood Cell (RBC) Count 4.76 10x6/uL (4.32-5.72); White Blood Cell (WBC) Count 6.6 10x3/uL (3.5-10.5)
[2021-12-08 18:14] LABS: Anion Gap 12 mmol/L (10-20); BUN (Urea Nitrogen) 18 mg/dL (8.4-25.7); Calc. Creatinine Clearance 0 mL/min (70-130); Calcium 9.5 mg/dL (7.8-10.44); Carbon Dioxide 26 mmol/L (23-31); Chloride 100 mmol/L (98-107); Estimated GFR 73; Glucose 79 mg/dL (80-115); Potassium 3.4 mmol/L (3.5-5.1); Sodium 135 mmol/L (136-145)
== END 2021-12-08 17:14 | disposition home or self-care (01) ==
LOC: LABBT 17:13
PROVIDERS: ATTEND Orthopaedic Surgery Hand Surgery
DX: Z01.812 Encounter for preprocedural laboratory examination (principal); S62.623B Displaced fracture of middle phalanx of left middle finger, initial encounter for open fracture; S64.493A Injury of digital nerve of left middle finger, initial encounter; M19.142 Post-traumatic osteoarthritis, left hand; Z20.822 Contact with and (suspected) exposure to COVID-19
CPT/HCPCS: 80048; 85025; 87811